=== PATIENT | female | born 1965 | race Caucasian/White ===

== ENCOUNTER 2018-09-21 08:36 | Inpatient (IN) | payer OTHER ==
[2018-09-09 09:14] LABS: HEMATOCRIT 43.4 % (37.0-47.0); HEMOGLOBIN 14.9 gm/dL (12.0-15.0); MCH 33.7 pg (26.0-34.0); MCHC 34.2 g/dL (28.0-37.0); MCV 98.6 fL (80.0-100.0); MPV 8.6 fl. (7.2-11.1); RBC 4.41 mil/uL (4.20-5.00); RDW-CV 14.2 % (10.5-14.5); WBC 10.7 thou/uL (4.0-11.0)
[2018-09-09 09:17] LABS: URINE BILIRUBIN NEGATIVE (Negative); URINE BLOOD TRACE (Negative); URINE CLARITY CLEAR; URINE COLOR YELLOW; URINE GLUCOSE-RANDOM NEGATIVE (Negative); URINE KETONES NEGATIVE (Negative); URINE LEUKOCYTES-REFLEX NEGATIVE (Negative); URINE NITRITE-REFLEX NEGATIVE (Negative); URINE PROTEIN NEGATIVE (Negative); URINE UROBILINOGEN 0.2 E.U./dl (0.2-1.0)
[2018-09-09 09:22] LABS: PROTIME 9.8 Seconds (9.20-11.50)
[2018-09-09 09:26] LABS: ALBUMIN 3.9 g/dL (3.4-5.0); CALCIUM 9.7 mg/dL (8.5-10.1); CREATININE 0.8 mg/dL (0.6-1.3); POTASSIUM 3.8 mmol/L (3.5-5.1); TOTAL BILIRUBIN 0.4 mg/dL (<0.1-1.0)
--- NOTE | 2018-09-09 12:24 | EKG ---
[place] [address] ELECTROCARDIOGRAM REPORT Name: CHELLY LAINEZ Room: PRE IN [facility]#: [id number] Admission: Attend Phys: Karissa Rodriguez Discharge: Date of : 61 Report #: [id number] THIS REPORT FOR: //name// [facility] Test Date: 2018-09-09 Test Time: 09:25:19 Pat Name: CHELLY LAINEZ Department: Room: Gender: F Enrober Tender: : 1965 Requested By: Glynn Abebe Order Number: [id number] Reading MD: Mat Gomez Measurements Intervals Noti Rate: 103 P: 74 CT: 154 QRS: 67 QRSD: 80 T: 9 QT: 342 QTc: 448 Interpretive Statements Sinus tachycardia Right atrial enlargement Minimal ST depression, inferior leads No previous ECG available for comparison Electronically Signed On 09-09-2018 12:24:23 [employer]PER[employer]ORY [employer]IV[employer] ENGINEER by Mat Gomez [email or web address] <ELECTRONICALLY SIGNED> By: Mat Gomez MD, [facility] 09/09/18 1224 0925 0925 Mat Gomez MD, FACC /EPI
[~2018-09-21] VITALS: Ht 162.6 cm; Wt 94.1 kg
[~2018-09-21 08:36] MED LIST: ALEVE220 MG PO; LOSARTAN-HCTZ1 EAC3 PO; NORVASC5 MG PO; VITAMIN D1000 UNI1 PO
[2018-09-21 10:32] VITALS: BP 135/99
[2018-09-21 16:13] VITALS: BP 137/68
[2018-09-21 16:15] VITALS: BP 143/83
--- NOTE | 2018-09-21 17:04 | NUR ---
PT REMAINED ALERT AND ORIENTED. PT C/O PAIN MINIMAL BUT DENIES NEEDING ANY PO PAIN MEDS AT THIS TIME. PT EDUCATED ON NOTIFYING STAFF WHEN NEEDING PAIN MEDS. HEMOVAC IN PLACE TO LT HIP. RADHA HOSE ON BILAT. ICE PACKS TO HIP. SCD FEET IN PLACE. 3 LITERS O2 BY NASAL CANNULA, [address] IN [address]. COUGH NONPRODUCTIVE. LUNGS DIMINISHED. PT WBAT TO LT HIP. PT HAS NOT BEEN UP TO AMBULATE CURRENTLY. FALL RISK PRECAUTIONS IN PLACE. HOURLY ROUNDING COMPLETED. WILL CONTINUE TO MONITOR.
[2018-09-21 20:10] VITALS: BP 147/93
[2018-09-22 00:19] VITALS: BP 129/67
[2018-09-22 04:19] LABS: HEMATOCRIT 34.3 % (37.0-47.0); HEMOGLOBIN 11.8 gm/dL (12.0-15.0)
[2018-09-22 04:46] VITALS: BP 155/78
--- NOTE | 2018-09-22 04:58 | NUR ---
PATIENT HAS REMAINED ALERT AND ORIENTED X 4 THROUGHOUT THE SHIFT AND RESTING QUIETLY AT HOURLY ROUNDS. DRESSING LEFT HIP CLEAN AND DRY WITH HEMOVAC PRESENT DRAINING SANGUINEOUS FLUID/ICE PACK ON. PAIN MEDICATION PROVIDED X 3 TO GOOD EFFECT. UP TO BSC WITH MIN ASSIST OF ONE, GAIT BELT AND WALKER. VITAL SIGNS STABLE. CONTINUE TO MONITOR.
--- NOTE | 2018-09-22 06:00 | NUR ---
HEMOVAC DRAIN DISCONTINUED PER ORDER WITHOUT DIFFICULTY. PRESSURE DRESSING TO SITE.
[2018-09-22 09:00] VITALS: BP 136/81
[2018-09-22] MEDS ORDERED: PERCOCET PO (12:01)
[2018-09-22] MEDS ORDERED: XARELTO10 MG PO (12:03)
[2018-09-22 12:04] VITALS: BP 136/81
--- NOTE | 2018-09-22 16:13 | NUR ---
SPOKE WITH PT.AND ,LEOLA. SHE IS READY TO DISCHARGE TODAY. LEOLA WILL BE WITH HER FOR A DAY OR TWO DURING THE DAY AND AT NIGHT. A NEIGHBOR WILL HELP HER DURING THE DAY AFTER THAT IF NEEDED. CALLED IN PRESCRIPTION WRITTEN FOR AMAYA TO [facility] IN [facility]. COPAY WAS $50. PT.INFORMED. SHE HAS HER OWN FWW. SHE WOULD LIKE TO USE [facility] FOR THE FIRST 2 WEEKS. SHE IS NORMALLY INDEPENDENT AT HOME.
[2018-09-22 16:30] VITALS: BP 136/81
[2018-09-22 17:26] VITALS: BP 136/81
--- NOTE | 2018-09-22 17:26 | NUR ---
PT GIVEN DISCHARGE INFORMATION, PRESCRIPTIONS, AND CARE NOTES. IV REMOVED. PT BELONGINGS GATHERED. PT LEFT VIA WHEELCHAIR WITH TO HOME WITH HOME HEALTH. HOURLY ROUNDING COMPLETED. FALL RISK PRECAUTIONS IN PLACE.
--- NOTE | 2018-09-23 14:44 | OP ---
[facility] [address] [place] [address] OPERATIVE REPORT Name: CHELLY LAINEZ Room: [address]#: [id number] Admission: 09/21/18 Attend Phys: Karissa Rodriguez Discharge: 09/22/18 Date of : 61 Report #: [id number] THIS REPORT FOR: //name// CC: Nikita Olvera DATE OF SERVICE: 09/21/2018 PREOPERATIVE DIAGNOSIS: Left hip osteoarthritis. POSTOPERATIVE DIAGNOSIS: Left hip osteoarthritis. PROCEDURE: Left total hip arthroplasty with ceramic on polyethylene. ANESTHESIA: General endotracheal. SURGEON: Glynn Abebe II, DO PATTERN FINISHER: ARCHIE Newsome. ESTIMATED BLOOD LOSS: 200 mL. ANTIBIOTICS: Ancef preoperatively. DRAINS: Medium Hemovac. COMPLICATIONS: None. CONDITION: Stable to recovery room. IMPLANTS: Listed in the operative record and progress note. BRIEF HISTORY: The patient was seen in the preoperative area. Preoperative H and P was performed. Site was marked, questions were answered. Risks and benefits were discussed with the patient in detail about surgery. The patient wished to proceed, assuming all risks. DESCRIPTION OF PROCEDURE: The patient was taken to the operative suite and placed supine on the OR table and given appropriate anesthesia. The patient's operative hip was placed in the [place] table leg [place]inson and sterilely prepped and draped in supine position. Surgery was begun by longitudinal incision over the anterior aspect of the hip, the skin and subcutaneous tissues, a small kian was made in the tensor fascia. It was then split along with its fibers and retracted laterally. An H capsulotomy was then performed and careful hemostasis was obtained with electrocautery and Aquamantys. The head and neck cutting [address] [address] OPERATIVE REPORT Name: CHELLY LAINEZ Room: [address]#: [id number] Admission: 09/21/18 Attend Phys: Karissa Rodriguez Discharge: 09/22/18 Date of : 61 Report #: [id number] alignment guide was checked with fluoroscopic guidance. Appropriate cut was then made to the head and neck and this was removed. Attention was turned to the acetabulum. Excess labrum was removed. It was then reamed in sequential fashion and sized to appropriate size. This showed excellent bleeding bone, excellent position with fluoroscopic guidance. Acetabular cup was then malleted, positioned, secured with cancellous screws. Metal liner was then applied. The patient's leg was then rotated and extended on the [place] table to expose the femur. It was then broached in sequential fashion up to the appropriate size. The appropriate neck was then trialed with appropriate head length and shown to have excellent fit and fill and excellent stability of the hip through all range of motion. Trials removed. The final stem was then malleted in position and the final head and neck was malleted in position. It was reduced in appropriate fashion, checked with C-arm for appropriate leg lengths which showed excellent leg length throughout the exam without evidence of dislocation upon range of motion and on shuck testing. The wound was then copiously irrigated. Hemostasis was maintained with electrocautery and Aquamantys. Pain cocktail was injected. The H capsulotomy was closed with #1 Vicryl in [id number] fashion. Tensor fascia closed with #1 Vicryl in running fashion. Skin was closed with 2-0 Vicryl and a running 3-0 Monocryl. Dermabond and sterile dressing applied. The patient transported to recovery room in stable condition. Counts were correct throughout the procedure. <ELECTRONICALLY SIGNED> By: Glynn Abebe II, DO 09/23/18 1444 1230 [id number] Abebe II, DO /nt
== END 2018-09-22 17:27 | disposition home health service (06) | DRG 470 ==
LOC: M.PRE 08:36 → M.TBA 09:45 → M.PRE 10:28 → M.ORTHSURG 15:39 → M.PRE 16:44 → M.ORTHSURG 09-22 17:27
PROVIDERS: Orthopaedic Surgery; ADMIT Internal Medicine
PROC: 0SRB04A Replacement of Left Hip Joint with Ceramic on Polyethylene Synthetic Substitute, Uncemented, Open Approach (ICD-10-PCS; principal; 2018-09-21)
DX: M16.12 Unilateral primary osteoarthritis, left hip (principal); I10 Essential (primary) hypertension; F17.210 Nicotine dependence, cigarettes, uncomplicated; Z82.49 Family history of ischemic heart disease and other diseases of the circulatory system; Z28.21 Immunization not carried out because of patient refusal